=== PATIENT | female | born 1980 ===

== ENCOUNTER 2016-07-15 06:39 | Day surgery (SDC) | payer OTHER ==
[~2016-07-15] VITALS: Ht 162.6 cm; Wt 57.0 kg
[~2016-07-15 06:39] MED LIST: LACTATED RINGERS 1,000 ML IV SCH; SODIUM CHLORIDE FLUSH 3 ML SYR IV PRN
[2016-07-15 06:45] VITALS: BP 111/70
[2016-07-15] MEDS ORDERED: ALFENTANIL 1,000 MCG/2 ML AMP IV ONE (06:59)
[2016-07-15] MEDS ORDERED: PROPOFOL 20 ML IV ONE (06:59)
[2016-07-15] MEDS ORDERED: ONDANSETRON 2 MG/ML (Z0FRAN) 2 ML VIAL ONE (07:06)
[2016-07-15] MEDS ORDERED: SCOPOLAMINE 1.5 MG (TRANSDERM-SCOP) PATCH TD ONE (07:06)
[2016-07-15] MEDS ORDERED: diphenhydrAMINE 50 MG/ML INJ (BENADRYL) ONE (07:06)
[2016-07-15] MEDS ORDERED: KETOROLAC 60 MG/2 ML (TORADOL) VIAL IM ONE (07:36)
[2016-07-15] MEDS ORDERED: SILVER NITRATE APPLICATOR 1 EA TOP ONE (07:43)
[2016-07-15] MEDS ORDERED: HYDROcodone/APAP 5 MG/325 MG (NORCO) TAB PO PRN (07:55)
[2016-07-15 08:25] VITALS: BP 104/64
[2016-07-15 08:47] VITALS: BP 109/71
== END 2016-07-15 08:48 | disposition home or self-care (01) ==
LOC: ASC 06:39
PROVIDERS: ATTEND Obstetrics & Gynecology
DX: N81.4 Uterovaginal prolapse, unspecified (principal); N85.4 Malposition of uterus
CPT/HCPCS: 58353; 81025; J1885; J7120; 58558